=== PATIENT | male | born 1965 | race Caucasian/White ===

== ENCOUNTER 2019-04-10 07:30 | Day surgery (SDC) | payer OTHER ==
[2019-04-09 14:54] VITALS: BMI 31.1
[2019-04-10 07:50] VITALS: TEMP 98.1
[2019-04-10] MEDS ORDERED: PROPOFOL 20 ML ONE ×2 (08:12)
[2019-04-10 09:18] VITALS: BP 106/66; PULSE 57
--- NOTE | 2019-04-15 16:11 | PATH ---
Surgical Pathology Report Patient Name: ROSA AUSTIN [facility]. Rec. #: [id number] /Age/Gender: 1965 (Age: 54) / M Account: [id number] Location: [facility] Taken: 04/11/2019 Received: 04/11/2019 Reported: 04/15/2019 Physicians: Tl Rodriguez M.D. Specimen(s) Received POLYPS HEPATIC FLEXURE Clinical History Rule out colon cancer Postoperative diagnosis: Diverticulosis, polyp, hemorrhoids Final Diagnosis HEPATIC FLEXURE POLYPS, POLYPECTOMY: TUBULAR ADENOMA, TWO FRAGMENTS. Electronically Signed Angela Jackson M.D. Gross Description Received in formalin, labeled "polyps hepatic flexure" are 2 salazar, polypoid portions of soft tissue measuring 0.7 and 0.8 cm. in greatest dimension. The specimens are submitted in toto in one cassette. 04/12/201904/12/2019
== END 2019-04-10 09:25 | disposition home or self-care (01) ==
LOC: FASU-ENDO 07:30
PROVIDERS: ATTEND Internal Medicine Gastroenterology
PROC: 0DBL8ZX Excision of Transverse Colon, Via Natural or Artificial Opening Endoscopic, Diagnostic (ICD-10-PCS; principal; 2019-04-10 08:25)
DX: Z12.11 Encounter for screening for malignant neoplasm of colon (principal); D12.3 Benign neoplasm of transverse colon; K57.30 Diverticulosis of large intestine without perforation or abscess without bleeding
CPT/HCPCS: 88305-TC